=== PATIENT | male | born 1995 | race Caucasian/White ===

== ENCOUNTER 2016-11-25 16:19 | Emergency (ER) | payer OTHER ==
[~2016-11-25] VITALS: Ht 190.5 cm; Wt 57.0 kg
[~2016-11-25 16:19] MED LIST: CHLO.12%30 SWISH-SPIT; CLIN1CAP6 PO; MMW SWISH-SPIT; SERT100 PO; TOPA100T8 PO
[2016-11-25 16:28] VITALS: BP 110/68; PULSE 81; RESP 16; TEMP 98.1; O2SAT 98
[2016-11-25] MEDS ORDERED: ZOLO100T PO ×2 (16:52→17:11)
[2016-11-25] MEDS ORDERED: TOPA100T11 PO (16:52)
--- NOTE | 2016-11-25 17:12 | PD ---
HPI Chief Complaint: Medication Refill Request Time Seen by Provider: 17:04 Travel History International Travel<30 days: No Contact w/Intl Traveler<30days: No Traveled to known affect area: No History of Present Illness HPI Patient is a 21-year-old male with history of depression and mild autism presents emergency department for medication refill. Patient states his grandmother just and he is been having some increased depression recently as well some anxiety. Patient states he is requesting a refill of his Zoloft. He also does take some trazodone but states he does have a supply of this. He is accompanied by his brother who states times have been tough in the family. Patient denies any suicidal or homicidal ideation denies any on revisit hallucinations. Patient does complain of some generalized body aches denies any trauma. Patient denies any specific complaints this time denies chest pain shortness of breath abdominal pain nausea vomiting diarrhea constipation. Denies any cough or fever. PFSH Past Medical History Anxiety: Yes Diminished Hearing: No Psychiatric: Yes (austism) Immunizations Current: Yes Seizures: Yes Influenza Vaccination: No Past Surgical History Surgical History: No Previous Surgery Social History Alcohol Use: No Tobacco Use: No Substance Use: No Allergies-Medications (Allergen,Severity, Reaction): Coded Allergies: Penicillin (Verified Allergy, Severe, Rash, 11/25/16) Prednisone (Verified Allergy, Severe, "NUMBNESS", 11/25/16) Ibuprofen (Verified Allergy, Mild, RASH, 11/25/16) Reported Meds & Prescriptions Reported Meds & Active Scripts Active Zoloft (Sertraline HCl) 100 Mg Tab 100 Mg PO DAILY Reported Topamax (Topiramate) 100 Mg Tab 100 Mg PO HS Zoloft (Sertraline HCl) 100 Mg Tab 100 Mg PO DAILY Review of Systems Except as stated in HPI: all other systems reviewed are Neg Physical Exam Narrative GENERAL: Well-nourished, well-developed patient. SKIN: Warm and dry. HEAD: Normocephalic. EYES: No scleral icterus. No injection or drainage. NECK: Supple, trachea midline. No JVD or lymphadenopathy. CARDIOVASCULAR: Regular rate and rhythm without murmurs, gallops, or rubs. RESPIRATORY: Breath sounds equal bilaterally. No accessory muscle use. GASTROINTESTINAL: Abdomen soft, non-tender, nondistended. MUSCULOSKELETAL: No cyanosis, or edema. BACK: Nontender without obvious deformity. No CVA tenderness. Psychiatric: Somewhat withdrawn but denies any suicidal homicidal ideation. Quite pleasant and interactive once I've gained his trust. Data Data Last Documented VS Orders Tramadol (Ultram) (11/25/16 17:15) MDM Medical Decision Making Medical Screen Exam Complete: Yes Emergency Medical Condition: Yes Differential Diagnosis Anxiety, depression, adjustment disorder. Narrative Course Patient was roomed emergency department, he appears well in no apparent distress. I'm happy to refill a months worth of Zoloft. Patient is a lady to hear this news. He is stable for discharge at this time and has no indication for further emergent workup at this time per Diagnosis Primary Impression: Depression Qualified Code: F32.9 - Depression, unspecified depression type Additional Impression: Body aches Med/Other Pt SpecificInfo: Prescription(s) given Scripts Sertraline (Zoloft)100 Mg Qpc912 Mg PO DAILY #30 TAB Ref 0 Prov:Richar Mcneal MD 11/25/16 Disposition: 01 DISCHARGE HOME Condition: Stable Richar Mcneal MD Nov 25, 2016 17:11
[2016-11-25] MEDS ORDERED: traMADol HCL 50 MG TAB PO ONE (17:15)
[2016-11-25 18:03] VITALS: RESP 16
== END 2016-11-25 18:04 | disposition home or self-care (01) ==
LOC: PHED 16:19 → PHEFT 18:04
DX: F41.8 Other specified anxiety disorders (principal); M79.1 Myalgia; Z76.0 Encounter for issue of repeat prescription
CPT/HCPCS: 99281

== ENCOUNTER 2017-08-23 17:28 | Emergency (ER) | payer OTHER ==
[~2017-08-23 17:28] MED LIST changes: -CHLO.12%30 SWISH-SPIT; -CLIN1CAP6 PO; -MMW SWISH-SPIT; -SERT100 PO; -TOPA100T8 PO; +TOPI100 PO; +ZOLO100T PO
[2017-08-23 17:32] VITALS: BP 101/63; PULSE 100; RESP 20; TEMP 98.4; O2SAT 99
[2017-08-23] MEDS ORDERED: CLIN300C5 PO (17:48)
[2017-08-23] MEDS ORDERED: PERI0.126 SWISH-SPIT (17:48)
--- NOTE | 2017-08-23 17:49 | PD ---
HPI Chief Complaint: Facial Pain or Swelling Time Seen by Provider: 17:42 Travel History International Travel<30 days: No Contact w/Intl Traveler<30days: No Traveled to known affect area: No History of Present Illness HPI 22-year-old male patient presents to the ER today, states that he is had 3 days history of right facial swelling and discomfort at his tooth. He denies any fevers, difficulty swallowing, or any other symptoms. Modifying Factors: None Associated Signs & Symptoms: Right facial swelling Risk Factors: None PFSH Past Medical History Anxiety: Yes Diminished Hearing: No Psychiatric: Yes (austism) Immunizations Current: Yes Seizures: Yes Social History Alcohol Use: No Tobacco Use: No Substance Use: No Allergies-Medications (Allergen,Severity, Reaction): Coded Allergies: penicillin G (Unverified Allergy, Severe, Rash, 04/22/17) prednisone (Unverified Allergy, Severe, "NUMBNESS", 04/22/17) ibuprofen (Unverified Allergy, Mild, RASH, 04/22/17) Reported Meds & Prescriptions Reported Meds & Active Scripts Active Zoloft (Sertraline HCl) 100 Mg Tab 100 Mg PO DAILY Reported Topamax (Topiramate) 100 Mg Tab 100 Mg PO HS Zoloft (Sertraline HCl) 100 Mg Tab 100 Mg PO DAILY Review of Systems Except as stated in HPI: all other systems reviewed are Neg Physical Exam Narrative GENERAL: Young male patient currently in no acute distress but awake and oriented 3. Airway is intact. SKIN: Focused skin assessment warm/dry. HEAD: Atraumatic. Normocephalic. EYES: Pupils equal and round. No scleral icterus. No injection or drainage. ENT: Mucosa pink and moist. No erythema or exudates. No uvular edema. No uvular , palatal, or tonsillar deviation. Airway patent. DENTAL: Patient has multiple severe dental caries with missing right maxillary molar and significant gingival edema with no underlying fluctuance. No malocclusion. There is diffuse buccal edema around the area with no underlying fluctuance, nontender to palpation. NECK: Trachea midline. No JVD. CARDIOVASCULAR: Regular rate and rhythm. No murmur appreciated. RESPIRATORY: No accessory muscle use. Clear to auscultation. Breath sounds equal bilaterally. GASTROINTESTINAL: Abdomen soft, non-tender, nondistended. Hepatic and splenic margins not palpable. MUSCULOSKELETAL: No obvious deformities. No clubbing. No cyanosis. No edema. NEUROLOGICAL: Awake and alert. No obvious cranial nerve deficits. Motor grossly within normal limits. Normal speech. PSYCHIATRIC: Appropriate mood and affect; insight and judgment normal. Data Data Last Documented VS Vital Signs Date Time Temp Pulse Resp B/P (MAP) Pulse Ox O2 Delivery O2 Flow Rate FiO2 08/23/17 17:32 98.4 100 20 101/63 (76) 99 MDM Medical Decision Making Medical Screen Exam Complete: Yes Emergency Medical Condition: Yes Medical Record Reviewed: Yes Differential Diagnosis Dental abscess versus facial cellulitis versus gingivitis Narrative Course I do not palpate an obvious abscess and airway is intact. I do not see signs of facial cellulitis, his face is actually nontender to palpation. It appears that most of this appears to be adjacent gingivitis to his severely carried tooth. At this point, my plan would be to treat him with antibiotics and chlorhexidine mouthwashes which he has had previously as well. Follow-up with dentist. Return for any worsening in pain or new symptoms as needed. The plan has been discussed with him and he states understanding. Diagnosis Primary Impression: Gingivitis Additional Impression: Dental caries Med/Other Pt SpecificInfo: Prescription(s) given Scripts Chlorhexidine Gluconate (Mouth) Liq (Peridex Liq) 0.12% Soln 15 ML SWISH-SPIT BID, #473 ML 0 Refills Prov: Julieta Hernandez MD 08/23/17 Clindamycin (Clindamycin) 300 Mg Cap 300 MG PO TID for Infection, #21 CAP 0 Refills Prov: Julieta Hernandez MD 08/23/17 Disposition: 01 DISCHARGE HOME Condition: Stable Julieta Hernandez MD Aug 23, 2017 17:49
== END 2017-08-23 17:56 | disposition home or self-care (01) ==
LOC: PHED 17:28
DX: K05.10 Chronic gingivitis, plaque induced (principal); K02.9 Dental caries, unspecified
CPT/HCPCS: 99284

== ENCOUNTER 2018-01-28 23:50 | Emergency (ER) | payer OTHER ==
[~2018-01-28] VITALS: Ht 193 cm; Wt 57.6 kg
[~2018-01-28 23:50] MED LIST changes: +CLIN300C5 PO; +PERI0.126 SWISH-SPIT
[2018-01-29 00:16] VITALS: BP 106/69; PULSE 108; RESP 14; TEMP 98; O2SAT 97
--- NOTE | 2018-01-29 00:50 | PD ---
HPI Chief Complaint: Facial Pain or Swelling Time Seen by Provider: 00:49 Travel History International Travel<30 days: No Contact w/Intl Traveler<30days: No Traveled to known affect area: No History of Present Illness HPI 22-year-old male came to the emergency room with right-sided facial swelling and complaining of possible sinus infection. Patient says the swelling has been going on for past 2 days. No pain. Vital signs are stable. Patient has significant facial hair and hence is difficult to tell the swelling but patient subjectively perceives that. No history of trauma. No history of difficulty breathing. PFSH Past Medical History Narrative Medical List of her past medical, surgical, social and family history reviewed from the nursing note. Anxiety: Yes Diminished Hearing: No Psychiatric: Yes (autism) Immunizations Current: Yes Seizures: Yes Social History Alcohol Use: No Tobacco Use: No Substance Use: No Allergies-Medications (Allergen,Severity, Reaction): Coded Allergies: penicillin G (Unverified Allergy, Severe, Rash, 04/22/17) prednisone (Unverified Allergy, Severe, "NUMBNESS", 04/22/17) ibuprofen (Unverified Allergy, Mild, RASH, 04/22/17) Comments List of his allergies reviewed from the nursing note Reported Meds & Prescriptions Reported Meds & Active Scripts Active Clindamycin (Clindamycin HCl) 150 Mg Cap 300 Mg PO Q6H 10 Days Peridex Liq (Chlorhexidine Gluconate (Mouth) Liq) 0.12% Soln 15 Ml SWISH-SPIT BID Clindamycin (Clindamycin HCl) 300 Mg Cap 300 Mg PO TID Zoloft (Sertraline HCl) 100 Mg Tab 100 Mg PO DAILY Reported Topamax (Topiramate) 100 Mg Tab 100 Mg PO HS Zoloft (Sertraline HCl) 100 Mg Tab 100 Mg PO DAILY Narrative Medication List of his home medications reviewed from the nursing note. Review of Systems Except as stated in HPI: all other systems reviewed are Neg Physical Exam Narrative GENERAL: Awake, alert, no obvious distress SKIN: Focused skin assessment warm/dry. HEAD: Atraumatic. Normocephalic. EYES: Pupils equal and round. No scleral icterus. No injection or drainage. ENT: No nasal bleeding or discharge. Mucous membranes pink and moist. Extremely poor dentition with caries. Right-sided mild facial puffiness with no redness, warmth of the skin or tenderness NECK: Trachea midline. No JVD. CARDIOVASCULAR: Regular rate and rhythm. No murmur appreciated. RESPIRATORY: No accessory muscle use. Clear to auscultation. Breath sounds equal bilaterally. GASTROINTESTINAL: Abdomen soft, non-tender, nondistended. Hepatic and splenic margins not palpable. MUSCULOSKELETAL: No obvious deformities. No clubbing. No cyanosis. No edema. NEUROLOGICAL: Awake and alert. No obvious cranial nerve deficits. Motor grossly within normal limits. Normal speech. PSYCHIATRIC: Appropriate mood and affect; insight and judgment normal. Data Data Last Documented VS Vital Signs Date Time Temp Pulse Resp B/P (MAP) Pulse Ox O2 Delivery O2 Flow Rate FiO2 01/29/18 02:47 88 18 121/67 (85) 100 01/29/18 00:16 98.0 Orders Orders Complete Blood Count With Diff (01/29/18 00:54) Basic Metabolic Panel (Bmp) (01/29/18 00:54) Blood Culture (01/29/18 00:54) Ct Facial Bones W Iv Contrast (01/29/18 ) ^ Saline Lock (01/29/18 00:54) C-Reactive Protein (Crp) (01/29/18 00:54) Potassium Chloride Eff (K-Lyte Cl Eff) (01/29/18 01:30) Ed Discharge Order (01/29/18 02:23) Clindamycin (Cleocin) (01/29/18 02:30) Iohexol 350 Inj (Omnipaque 350 Inj) (01/29/18 02:51) Labs Laboratory Tests Test 01/29/18 01:05 White Blood Count 4.0 TH/MM3 Red Blood Count 4.73 MIL/MM3 Hemoglobin 14.5 GM/DL Hematocrit 41.8 % Mean Corpuscular Volume 88.3 FL Mean Corpuscular Hemoglobin 30.6 PG Mean Corpuscular Hemoglobin Concent 34.7 % Red Cell Distribution Width 13.7 % Platelet Count 247 TH/MM3 Mean Platelet Volume 9.3 FL Neutrophils (%) (Auto) 39.4 % Lymphocytes (%) (Auto) 48.9 % Monocytes (%) (Auto) 9.6 % Eosinophils (%) (Auto) 1.6 % Basophils (%) (Auto) 0.5 % Neutrophils # (Auto) 1.6 TH/MM3 Lymphocytes # (Auto) 1.9 TH/MM3 Monocytes # (Auto) 0.4 TH/MM3 Eosinophils # (Auto) 0.1 TH/MM3 Basophils # (Auto) 0.0 TH/MM3 CBC Comment DIFF FINAL Differential Comment Blood Urea Nitrogen 10 MG/DL Creatinine 0.90 MG/DL Random Glucose 86 MG/DL Calcium Level 8.9 MG/DL Sodium Level 141 MEQ/L Potassium Level 3.3 MEQ/L Chloride Level 107 MEQ/L Carbon Dioxide Level 30.2 MEQ/L Anion Gap 4 MEQ/L Estimat Glomerular Filtration Rate 104 ML/MIN C-Reactive Protein LESS THAN 0.29 MG/DL MDM Medical Decision Making Medical Screen Exam Complete: Yes Emergency Medical Condition: Yes Medical Record Reviewed: Yes Differential Diagnosis Dental caries, dental abscess, sinusitis Narrative Course 2:21 AM blood test results are within normal limits. CT scan of the face with IV contrast was read negative. Patient will be discharged home on prescription for antibiotic. Procedures EKG Prior to Arrival: No Diagnosis Primary Impression: Dental caries Additional Impression: Facial swelling Additional Instructions: Follow-up with the dentist for your teeth. Take the antibiotic as per the prescription direction. Med/Other Pt SpecificInfo: Prescription(s) given Scripts Clindamycin (Clindamycin) 150 Mg Cap 300 MG PO Q6H for Infection for 10 Days, #80 CAP 0 Refills Prov: Sakshi Arana MD 01/29/18 Disposition: 01 DISCHARGE HOME Condition: Stable Sakshi Arana MD January 29, 2018 00:50
[2018-01-29 01:17] LABS: AUTOMATED NEUTROPHIL # 1.6 TH/MM3 (1.8-7.7); BASOPHIL % 0.5 % (0.0-2.0); EOSINOPHIL # 0.1 TH/MM3 (0-0.4); EOSINOPHIL % 1.6 % (0.0-4.0); HEMATOCRIT 41.8 % (39.0-51.0); HEMOGLOBIN 14.5 GM/DL (13.0-17.0); LYMPH % 48.9 % (9.0-44.0); LYMPHOCYTE # 1.9 TH/MM3 (1.0-4.8); MEAN CELL VOLUME 88.3 FL (80.0-100.0); MEAN CORPUSCULAR HEMOGLOBIN 30.6 PG (27.0-34.0); MEAN CORPUSCULAR HGB CONC 34.7 % (32.0-36.0); MEAN PLATELET VOLUME 9.3 FL (7.0-11.0); MONO % 9.6 % (0.0-8.0); MONOCYTE # 0.4 TH/MM3 (0-0.9); NEUT % 39.4 % (16.0-70.0); PLATELET COUNT 247 TH/MM3 (150-450); RED BLOOD COUNT 4.73 MIL/MM3 (4.50-5.90); RED CELL DISTRIBUTION WIDTH 13.7 % (11.6-17.2)
[2018-01-29 01:24] LABS: CHLORIDE 107 MEQ/L (98-107); SODIUM (NA) 141 MEQ/L (136-145)
[2018-01-29 01:26] LABS: CALCIUM 8.9 MG/DL (8.5-10.1)
[2018-01-29 01:27] LABS: BICARBONATE 30.2 MEQ/L (21.0-32.0); BLOOD UREA NITROGEN 10 MG/DL (7-18); GLUCOSE,RANDOM 86 MG/DL (74-106)
[2018-01-29 01:30] LABS: C-REACTIVE PROTEIN LESS THAN 0.29 MG/DL (0.00-0.30); GLOMERULAR FILTRATION RATE 104 ML/MIN (>89)
[2018-01-29] MEDS ORDERED: POTASSIUM CHLORIDE 25 MEQ EFFERVESCENT TAB PO ONE (01:30)
--- NOTE | 2018-01-29 02:11 | RADRPT ---
EXAM DATE: 01/29/2018 2:08 AM EDT AGE/SEX: 22 years / Male INDICATIONS: Right sided facial/nasal swelling. CLINICAL DATA: This is the patient's initial encounter. Patient reports that signs and symptoms have been present for 3 days and indicates a pain score of 2/10. MEDICAL/SURGICAL HISTORY: None. None. RADIATION DOSE: 29.92 CTDI (mGy) COMPARISON: No prior [place] exams available for comparison. TECHNIQUE: Contiguous images in the axial and coronal planes were obtained using helical multirow de tector technique with 60 ml Omnipaque 350 (iohexol) nonionic water-soluble contrast as a single exam dose. Using automated exposure control and adjustment of the mA and/or kV according to patient size , radiation dose was kept as low as reasonably achievable to obtain optimal diagnostic quality images . FINDINGS: Orbits: The orbital and infraorbital osseous structures are intact. The retroconal structures have a normal configuration. No radiopaque foreign bodies are seen. Nasal Bone: The nasal bone and maxillary spine are intact. Zygomatic Arches: Symmetric without evidence of fracture. Sinuses: The maxillary, ethmoid and frontal sinuses are intact. No air-fluid levels seen. Nasal Cavity: The nasal septum is intact and midline. The lacrimal ducts are intact. Soft Tissues: No radiopaque foreign bodies seen. No soft-tissue swelling is identified radiographic ally. Intracranial: No intracranial air seen. Cribriform Plate: Grossly intact. Post Contrast: No abnormal areas of enhancement seen. CONCLUSION: 1. Negative exam with no underlying bony abnormality. 2. Paranasal sinuses are clear bilaterally. Electronically signed by: Duane Mcdaniels MD 01/29/2018 2:10 AM EDT
[2018-01-29] MEDS ORDERED: CLIN150C14 PO (02:23)
[2018-01-29] MEDS ORDERED: CLINDAMYCIN 150 MG CAP PO ONE (02:30)
[2018-01-29 02:47] VITALS: BP 121/67
[2018-01-29] MEDS ORDERED: IOHEXOL 350 MG/ML 10 ML VIAL (for RAD DIAG) IVCONTRAST ONE (02:51)
== END 2018-01-29 02:50 | disposition home or self-care (01) ==
LOC: PHED 23:50
DX: K02.9 Dental caries, unspecified (principal); R22.0 Localized swelling, mass and lump, head; F84.0 Autistic disorder; Z88.0 Allergy status to penicillin; Z88.8 Allergy status to other drugs, medicaments and biological substances; Z88.6 Allergy status to analgesic agent
CPT/HCPCS: 70487; 80048; 85025; 86140; 87040; 99285; Q9967